=== PATIENT | male | born 1985 | race Caucasian/White ===

== ENCOUNTER 2018-12-04 19:11 | Inpatient (IN) | payer SELFPAY ==
[~2018-12-04] VITALS: Ht 167.6 cm; Wt 72.8 kg
[2018-12-04 20:46] LABS: BASOPHILS % 1.4 % (0.0-2.0); EOSINOPHILS % 0.6 % (0.0-5.0); HEMATOCRIT. 42.7 % (42.0-52.0); HEMOGLOBIN. 13.7 g/dL (14.0-18.0); LYMPHOCYTES % 19.2 % (20.0-50.0); MEAN CORPUSCULAR HEMOGLOBIN 26.4 pg (28.0-32.0); MEAN CORPUSCULAR VOLUME 82.4 fL (80.0-94.0); MEAN PLATELET VOLUME 8.9 fl (7.4-10.4); MONOCYTES % 10.9 % (2.0-8.0); NEUTROPHILS % 67.9 % (40.0-76.0); PLATELET 220 x1000/uL (130-400); RED BLOOD CELL COUNT 5.18 mill/uL (4.7-6.1); RED CELL DISTRIBUTION WIDTH 23.8 % (11.6-14.6)
[2018-12-04 20:52] LABS: CHLORIDE 103 mEq/L (98-107)
[2018-12-04 20:54] LABS: INR 1.7; PROTHROMBIN TIME 16.8 sec (9.6-11.0)
[2018-12-04 20:56] LABS: ETHANOL BLOOD 63 mg/dL
[2018-12-04 21:02] LABS: CLARITY URINE CLEAR (CLEAR); COLOR URINE YELLOW (YELLOW); KETONES URINE NEGATIVE (NEGATIVE); LEUKOCYTE ESTERASE URINE NEGATIVE (NEGATIVE); NITRITE URINE NEGATIVE (NEGATIVE); OCCULT BLOOD URINE NEGATIVE (NEGATIVE); PROTEIN URINE NEGATIVE (NEGATIVE); SPECIFIC GRAVITY URINE 1.004 (1.005-1.030)
[2018-12-04 21:10] LABS: PLATELET ESTIMATE NORMAL
[2018-12-04 21:13] LABS: METHADONE URINE SCREEN NEGATIVE (NEGATIVE); OPIATES URINE SCREEN NEGATIVE (NEGATIVE); PHENCYCLIDINE URINE SCREEN NEGATIVE (NEGATIVE)
[2018-12-04 21:14] LABS: *AMPHETAMINES SCREEN URINE NEGATIVE (NEGATIVE); *BARBITURATES SCREEN URINE NEGATIVE (NEGATIVE); *BENZODIAZEPINES SCREEN URINE NEGATIVE (NEGATIVE); *COCAINE SCREEN URINE NEGATIVE (NEGATIVE); CANNABINOID URINE SCREEN NEGATIVE (NEGATIVE)
[2018-12-04] MEDS ORDERED: DIATR MEGLU/DIATRIZOATE SOLN 30ML ONE (22:49)
[2018-12-05 00:10] LABS: CHLORIDE 103 mEq/L (98-107)
[2018-12-05 00:18] LABS: ETHANOL BLOOD 40 mg/dL
[2018-12-05 04:35] VITALS: BP 147/114
[2018-12-05] MEDS ORDERED: MORPHINE SULFATE 2 MG/ML CPJ (NOT FOR IM USE) IV PRN (04:45)
[2018-12-05] MEDS ORDERED: ONDANSETRON HCL 4MG/2ML INJ IV PRN (04:45)
[2018-12-05] MEDS ORDERED: CLONIDINE 0.1MG TABLET PO PRN (05:30)
[2018-12-05 08:00] VITALS: BP 138/97
[2018-12-05] MEDS: FUROSEMIDE 40MG/4ML VIAL IV SCH (08:43)
[2018-12-05] MEDS: AMLODIPINE 10MG TABLET PO SCH (08:43)
[2018-12-05 11:40] LABS: HEPATITIS B SURFACE ANTIGEN NEGATIVE
[2018-12-05 12:00] VITALS: BP 128/90
[2018-12-05 12:10] LABS: HEPATITIS A AB IGM NEGATIVE (NEGATIVE)
[2018-12-05] MEDS ORDERED: LORAZEPAM 2MG/ML CPJ IV PRN (13:15)
[2018-12-05 16:00] VITALS: BP 127/92
[2018-12-05 20:02] VITALS: BP 119/86
[2018-12-06] VITALS: BP 121/89
[2018-12-06 04:00] VITALS: BP 118/86
[2018-12-06 06:54] LABS: EOSINOPHILS % 1.4 % (0.0-5.0); HEMOGLOBIN. 13.3 g/dL (14.0-18.0); LYMPHOCYTES % 13.7 % (20.0-50.0); MEAN CORPUSCULAR HEMOGLOBIN 27.1 pg (28.0-32.0); MEAN CORPUSCULAR VOLUME 81.8 fL (80.0-94.0); MEAN PLATELET VOLUME 9.4 fl (7.4-10.4); MONOCYTES % 11.5 % (2.0-8.0); NEUTROPHILS % 72.4 % (40.0-76.0); PLATELET 215 x1000/uL (130-400); RED BLOOD CELL COUNT 4.89 mill/uL (4.7-6.1); RED CELL DISTRIBUTION WIDTH 22.8 % (11.6-14.6)
[2018-12-06 07:01] LABS: CHLORIDE 102 mEq/L (98-107)
[2018-12-06 08:00] VITALS: BP 135/99
[2018-12-06] MEDS: AMLODIPINE 10MG TABLET PO SCH (09:30)
[2018-12-06] MEDS: FUROSEMIDE 40MG/4ML VIAL IV SCH (09:30)
[2018-12-06 12:25] VITALS: BP 135/99
[2018-12-06] MEDS ORDERED: SPIRONOLACTONE 25MG TABLET PO SCH (12:30)
== END 2018-12-06 15:40 | disposition home or self-care (01) | DRG 279 ==
LOC: ER 20:53 → 5WST 12-05 02:58 → EDBEDREQDT 12-05 03:01 → EDBEDREQ 12-05 03:01 → EDBEDREQTM 12-05 03:01 → ENRESERV 12-05 03:30
PROVIDERS: ADMIT Hospitalist; ATTEND Hospitalist
DX: K72.00 Acute and subacute hepatic failure without coma (principal); E80.6 Other disorders of bilirubin metabolism; F10.10 Alcohol abuse, uncomplicated; I10 Essential (primary) hypertension; R60.0 Localized edema; Z71.41 Alcohol abuse counseling and surveillance of alcoholic
CPT/HCPCS: 36415; 71045; 74176; 76705; 80305; 80320; 82140; 83880; 84484; 86705; 86709; 86803; 87340; 93005; 93970; 99285; J1940; J2270; Q9963; G0480

== ENCOUNTER 2021-03-20 23:26 | Emergency (ER) | payer MEDICAID ==
[~2021-03-20] VITALS: Ht 172.7 cm; Wt 77.0 kg
[2021-03-21] MEDS ORDERED: SUCCINYLCHOLINE CHLORIDE 200MG/10ML IV ONE (08:38)
[2021-03-21] MEDS ORDERED: SODIUM BICARBONATE 8.4% 1 MEQ/ML 50ML SYR IV ONE (09:41)
[2021-03-21] MEDS ORDERED: EPINEPHRINE 0.1MG/ML (1:10,000) 10ML SYR ONE (09:41)
== END 2021-03-20 23:48 ==
LOC: ER 23:26
DX: I46.9 Cardiac arrest, cause unspecified (principal)
CPT/HCPCS: 31500; 36556; 99291; J0330; J3490